=== PATIENT | female | born 1945 | race Two or more races ===

== ENCOUNTER 2019-01-10 08:31 | Outpatient (CLI) | payer OTHER | END 2019-01-10 08:51 | disposition home or self-care (01) | LOC: NUCLEAR 08:31 | DX: K80.20 Calculus of gallbladder without cholecystitis without obstruction (principal) | CPT/HCPCS: 78227; A9537 ==

== ENCOUNTER 2019-02-23 05:00 | Day surgery (SDC) | payer OTHER ==
[~2019-02-23 05:00] MED LIST: AMLODIPINE-OLM1 EAC2; FORTAMET500 MG; GLIPIZIDE XL2.5 MG; GRALISE600 MG; IRBESARTAN-HCT1 EAC1; LIPIODOL10 ML; METFORMIN HCL500 M3; MONTELUKAST SODI4 M1
== END 2019-02-23 13:00 | disposition home or self-care (01) ==
LOC: CIR.AMB 05:00 → SURG 07:00 → EDSTATUS 10:15 → CIR.AMB 13:00 → O/R 13:20
DX: K80.10 Calculus of gallbladder with chronic cholecystitis without obstruction (principal); I10 Essential (primary) hypertension; E11.9 Type 2 diabetes mellitus without complications; Z79.4 Long term (current) use of insulin

== ENCOUNTER 2019-02-24 02:52 | Inpatient (IN) | payer OTHER ==
[~2019-02-24] VITALS: Ht 162.6 cm; Wt 79.8 kg
== END 2019-02-27 09:14 | disposition home or self-care (01) | DRG 392 ==
LOC: ER 02:52 → SURG 07:52 → SURH 07:52
PROVIDERS: ADMIT Specialist
DX: K29.00 Acute gastritis without bleeding (principal); K80.10 Calculus of gallbladder with chronic cholecystitis without obstruction; E87.6 Hypokalemia; E86.0 Dehydration; E87.8 Other disorders of electrolyte and fluid balance, not elsewhere classified; E11.9 Type 2 diabetes mellitus without complications; Z79.4 Long term (current) use of insulin

== ENCOUNTER 2019-06-23 17:09 | Emergency (ER) | payer OTHER ==
[~2019-06-23] VITALS: Ht 165.1 cm; Wt 76.2 kg
== END 2019-06-23 18:03 | disposition home or self-care (01) ==
LOC: ER 17:09
DX: T61.01XA Ciguatera fish poisoning, accidental (unintentional), initial encounter (principal); L27.2 Dermatitis due to ingested food; Y92.89 Other specified places as the place of occurrence of the external cause

== ENCOUNTER 2021-02-14 07:00 | Day surgery (SDC) | payer OTHER | END 2021-02-14 12:15 | disposition home or self-care (01) | LOC: AMB-ENDOS 07:00 | PROVIDERS: ATTEND Colon & Rectal Surgery | DX: D12.3 Benign neoplasm of transverse colon (principal); K64.1 Second degree hemorrhoids; Z20.822 Contact with and (suspected) exposure to COVID-19 ==